=== PATIENT | female | born 2000 | race Caucasian/White ===

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

== ENCOUNTER 2021-09-10 21:09 | Emergency (ER) | payer OTHER ==
[2021-09-10 21:24] VITALS: BP 120/66; PULSE 99; TEMP 99; BMI 22.0
== END 2021-09-10 21:41 | disposition home or self-care (01) ==
LOC: FER 21:09
DX: R00.2 Palpitations (principal); F43.9 Reaction to severe stress, unspecified
CPT/HCPCS: 93005; 93010; 99283-25

== ENCOUNTER 2021-10-14 23:53 | Emergency (ER) | payer OTHER ==
[2021-10-15] VITALS: BP 125/83; PULSE 88; TEMP 98.3; BMI 21.4
== END 2021-10-15 00:27 | disposition home or self-care (01) ==
LOC: FER 23:53
DX: G47.00 Insomnia, unspecified (principal)
CPT/HCPCS: 99283-25

== ENCOUNTER 2022-09-20 12:36 | Emergency (ER) | payer OTHER ==
[2022-09-20 12:42] VITALS: BMI 23.0
[2022-09-20] MEDS ORDERED: MAG HYDROX/AL HYDROX/SIMETH -MYLANTA- ORAL SUSPENSION PO ONE (13:28)
[2022-09-20] MEDS ORDERED: FAMOTIDINE 20 MG/50 ML IVPB 20 MG/50 ML MG IVPB ONE ×2 (13:28→13:38)
[2022-09-20] MEDS ORDERED: MAG HYDROX/AL HYDROX/SIMETH 30 ML UNIT-DOSE CUP ONE (13:38)
[2022-09-20] MEDS ORDERED: ACETAMINOPHEN 1000 MG/100 ML BAG IVPB ONE (13:59)
[2022-09-20] MEDS ORDERED: ACETAMINOPHEN INJECTION 100 ML IVPB ONE (14:08)
[2022-09-20 14:36] LABS: BASO % 0.3 % (0-2.0); HEMATOCRIT 42.5 % (32.4-45.2); HEMOGLOBIN 14.6 GM/dL (10.7-15.3); LYMPH % 35.6 % (8-40); MCH 29.6 pg (25.7-33.7); MCHC 34.3 g/dl (32.0-36.0); MEAN CELL VOLUME 86.3 fl (80-96); MEAN PLT VOLUME 8.4 fl (7.5-11.1); MONO % 7.2 % (3.8-10.2); NEUT % 55.9 % (42.8-82.8); PLATELET COUNT 286 10^3/uL (134-434); RBC 4.93 M/mm3 (3.60-5.2); RDW 12.5 % (11.6-15.6); WHITE BLOOD COUNT 8.1 K/mm3 (4.0-10.0)
[2022-09-20 14:52] LABS: CALCIUM 9.7 mg/dL (8.5-10.1)
[2022-09-20 14:53] LABS: ALBUMIN 4.4 g/dl (3.4-5.0)
[2022-09-20 14:56] LABS: CREATININE 0.6 mg/dL (0.55-1.3)
[2022-09-20 14:57] LABS: BILIRUBIN,TOTAL 0.3 mg/dL (0.2-1); TOT PROT 8.1 g/dl (6.4-8.2)
[2022-09-20 15:23] LABS: URINE APPEARANCE CLEAR; URINE BILIRUBIN NEGATIVE (NEGATIVE); URINE COLOR YELLOW; URINE GLUCOSE (UA) NEGATIVE (NEGATIVE); URINE KETONE NEGATIVE (NEGATIVE); URINE LEUK ESTERASE NEGATIVE (NEGATIVE); URINE NITRITE NEGATIVE (NEGATIVE); URINE PROTEIN NEGATIVE (NEGATIVE); URINE UROBILINOGEN 0.2 mg/dL (0.2-1.0)
[2022-09-20 15:26] LABS: HCG,QUALITATIVE URINE Negative
[2022-09-20 16:01] VITALS: BP 110/68; PULSE 78; RESP 19; TEMP 97.9
== END 2022-09-20 16:01 | disposition home or self-care (01) ==
LOC: JER 12:36
PROC: 3E033GC Introduction of Other Therapeutic Substance into Peripheral Vein, Percutaneous Approach (ICD-10-PCS; principal; 2022-09-20)
DX: R10.32 Left lower quadrant pain (principal)
CPT/HCPCS: 36415; 74019-TC-FY; 80053; 81003; 83690; 84703; 85025; 87086; 99284-25

== ENCOUNTER 2024-05-09 17:04 | Emergency (ER) | payer OTHER ==
[2024-05-09 17:19] VITALS: BP 113/75; PULSE 96; RESP 17; TEMP 98.5; BMI 22.8
[2024-05-09 18:19] LABS: HCG,QUALITATIVE URINE Negative
[2024-05-09 18:22] LABS: EPI CELLS 21 /uL (0-25.1); HYALINE CASTS 0 /uL (0-3.1); PH,URINE 6.5 (5.0-8.0); URINE APPEARANCE CLEAR; URINE BACTERIA 382 /uL (0-1359); URINE BILIRUBIN NEGATIVE (NEGATIVE); URINE COLOR YELLOW; URINE GLUCOSE (UA) NEGATIVE (NEGATIVE); URINE KETONE NEGATIVE (NEGATIVE); URINE LEUK ESTERASE TRACE (NEGATIVE); URINE NITRITE NEGATIVE (NEGATIVE); URINE PROTEIN NEGATIVE (NEGATIVE); URINE RBC 9 /uL (0-23.9); URINE UROBILINOGEN 0.2 mg/dL (0.2-1.0); URINE WBC 14 /uL (0-25.8)
[2024-05-09 19:11] LABS: HEMATOCRIT 39.7 % (32.4-45.2); HEMOGLOBIN 13.7 GM/dL (10.7-15.3); MCHC 34.4 g/dl (32.0-36.0); MEAN CELL VOLUME 84.3 fl (80-96); MEAN PLT VOLUME 8.2 fl (7.5-11.1); PLATELET COUNT 287 10^3/uL (134-434); RBC 4.71 M/mm3 (3.60-5.2); RDW 12.8 % (11.6-15.6); WHITE BLOOD COUNT 7.8 K/mm3 (4.0-10.0)
[2024-05-09 20:05] LABS: POTASSIUM 4.3 mmol/L (3.5-5.1)
[2024-05-09 20:08] LABS: ALBUMIN 4.1 g/dl (3.4-5.0); BLOOD UREA NITROGEN 12.3 mg/dL (7-18)
[2024-05-09 20:10] LABS: CREATININE 0.7 mg/dL (0.55-1.3)
[2024-05-09 20:12] LABS: BILIRUBIN,TOTAL 0.3 mg/dL (0.2-1)
[2024-05-09 20:13] LABS: TOT PROT 7.8 g/dl (6.4-8.2)
== END 2024-05-09 21:11 | disposition home or self-care (01) ==
LOC: JER 17:04 → JERFT 17:04
DX: R10.31 Right lower quadrant pain (principal)
CPT/HCPCS: 36415; 74177-TC; 80053; 81003; 84703; 85027; 87086; 99285-25; Q9967

== ENCOUNTER 2025-03-12 18:37 | Emergency (ER) | payer OTHER ==
[2025-03-12 18:45] VITALS: BP 106/73; PULSE 85; RESP 20; TEMP 98.4; BMI 22.4
== END 2025-03-12 19:51 | disposition home or self-care (01) ==
LOC: JERFT 18:37
DX: R42 Dizziness and giddiness (principal); M62.831 Muscle spasm of calf
CPT/HCPCS: 99283-25